=== PATIENT | male | born 1970 | race Caucasian/White ===

== ENCOUNTER 2022-03-15 16:06 | Inpatient (IN) | payer MEDICAID ==
[2022-03-15] MEDS ORDERED: predniSONE 20 MG Tab PO STA (19:08)
[2022-03-15] MEDS ORDERED: Acetaminophen 325 MG Tab PO PRN (19:27)
[2022-03-16] MEDS ORDERED: predniSONE 20 MG Tab PO SCH (09:00)
[2022-03-16] MEDS ORDERED: Pantoprazole 40 MG Tab.CR PO SCH (09:00)
== END 2022-03-16 14:52 | disposition home or self-care (01) | DRG 813 ==
LOC: JD.ED 16:06 → JD.MS 18:39
PROVIDERS: ADMIT Internal Medicine; ATTEND Internal Medicine
PROC: 30233R1 Transfusion of Nonautologous Platelets into Peripheral Vein, Percutaneous Approach (ICD-10-PCS; principal; 2022-03-15)
DX: D69.6 Thrombocytopenia, unspecified (principal); B18.1 Chronic viral hepatitis B without delta-agent; G35 Multiple sclerosis; E66.9 Obesity, unspecified; Z88.0 Allergy status to penicillin; Z68.30 Body mass index [BMI] 30.0-30.9, adult
CPT/HCPCS: 36415; 80053; 85027; 99284; A9270-GY; J7512; P9034